=== PATIENT | female | born 1965 | race Caucasian/White ===

== ENCOUNTER 2018-04-09 12:28 | Emergency (ER) | payer MEDICAID ==
[~2018-04-09] VITALS: Ht 165.1 cm; Wt 75.0 kg
[~2018-04-09 12:28] MED LIST: DULO30CA2 PO; GABA-531 PO; HYDR-519 PO; INSU3INS6 SUBCUT; LOSA25TA12 PO; METF-415 PO; MIRT-91 PO; PREG50CA PO
[2018-04-09] MEDS ORDERED: METHYLPREDNISOLONE SOD SUCC 125 MG/2 ML VIAL ONE (12:52)
[2018-04-09] MEDS ORDERED: SODIUM CHLORIDE 0.9% 1,000 ML IV ONE (12:55)
[2018-04-09] MEDS ORDERED: METHYLPREDNISOLONE SOD SUCC 125 MG/2 ML VIAL IV ONE (13:00)
[2018-04-09] MEDS ORDERED: DIPHENHYDRAMINE 50MG/ML VIAL IV ONE (13:00)
[2018-04-09] MEDS ORDERED: EPINEPHRINE 1:1000 1 MG/ML AMP IM ONE (13:00)
[2018-04-09] MEDS ORDERED: FAMOTIDINE 20MG/2ML VIAL IV ONE (13:00)
[2018-04-09 15:19] VITALS: BP 120/62
== END 2018-04-09 15:20 | disposition home or self-care (01) ==
LOC: ER 12:28
DX: T63.441A Toxic effect of venom of bees, accidental (unintentional), initial encounter (principal); T78.2XXA Anaphylactic shock, unspecified, initial encounter; Y92.89 Other specified places as the place of occurrence of the external cause
CPT/HCPCS: 96361; 96372; 96374; 96375; 99283; J1200; J2930; J3490; J7030

== ENCOUNTER 2019-12-03 08:48 | Emergency (ER) | payer MEDICAID ==
[~2019-12-03] VITALS: Ht 152.4 cm; Wt 72.0 kg
[~2019-12-03 08:48] MED LIST changes: -LOSA25TA12 PO; +LOSA25TA26 PO
[2019-12-03] MEDS ORDERED: ACETAMINOPHEN WITH CODEINE 300/30MG TABLET PO ONE (09:45)
[2019-12-03] MEDS ORDERED: DEXAMETHASONE 4MG TABLET PO ONE (09:45)
[2019-12-03] MEDS ORDERED: DIPHENHYDRAMINE 25MG CAPSULE PO ONE (11:15)
[2019-12-03 11:46] VITALS: BP 148/81
== END 2019-12-03 11:47 | disposition home or self-care (01) ==
LOC: ER 08:48
DX: M72.2 Plantar fascial fibromatosis (principal); Z98.890 Other specified postprocedural states; Z90.710 Acquired absence of both cervix and uterus
CPT/HCPCS: 73630; 99284; J8540; Q0163

== ENCOUNTER 2020-08-19 15:55 | Emergency (ER) | payer MEDICAID, OTHER ==
[~2020-08-19] VITALS: Ht 165.1 cm; Wt 85.0 kg
[~2020-08-19 15:55] MED LIST changes: -GABA-531 PO; +GABA-532 PO
[2020-08-19 15:56] VITALS: BP 143/67
[2020-08-19] MEDS ORDERED: ACETAMINOPHEN 325MG TABLET PO ONE (18:15)
== END 2020-08-19 19:17 | disposition home or self-care (01) ==
LOC: ER 15:55
DX: S93.402A Sprain of unspecified ligament of left ankle, initial encounter (principal); I10 Essential (primary) hypertension; E11.9 Type 2 diabetes mellitus without complications; J45.909 Unspecified asthma, uncomplicated; M79.7 Fibromyalgia; Z87.81 Personal history of (healed) traumatic fracture; Z98.890 Other specified postprocedural states; Z88.0 Allergy status to penicillin; W01.0XXA Fall on same level from slipping, tripping and stumbling without subsequent striking against object, initial encounter; Y93.89 Activity, other specified; Y92.89 Other specified places as the place of occurrence of the external cause; Y99.8 Other external cause status
CPT/HCPCS: 73610; 99283

== ENCOUNTER 2020-11-25 15:20 | Emergency (ER) | payer MEDICAID, OTHER ==
[~2020-11-25] VITALS: Ht 152.4 cm; Wt 75.0 kg
[2020-11-25] MEDS ORDERED: ONDANSETRON HCL 4MG/2ML INJ IV STA (16:27)
[2020-11-25] MEDS ORDERED: KETOROLAC 30MG/ML VIAL IV STA (16:27)
[2020-11-25] MEDS ORDERED: SODIUM CHLORIDE 0.9% 1,000 ML IV ONE (16:30)
[2020-11-25 16:42] LABS: BASOPHILS % 0.4 % (0.0-2.0); EOSINOPHILS % 0.6 % (0.0-5.0); HEMATOCRIT. 43.4 % (36.0-48.0); HEMOGLOBIN. 14.7 g/dL (12.0-16.0); LYMPHOCYTES % 26.7 % (20.0-50.0); MEAN CORPUSCULAR HEMOGLOBIN 28.5 pg (28.0-32.0); MEAN PLATELET VOLUME 9.3 fl (7.4-10.4); MONOCYTES % 5.9 % (2.0-8.0); NEUTROPHILS % 66.4 % (40.0-76.0); PLATELET 299 x1000/uL (130-400); RED BLOOD CELL COUNT 5.17 mill/uL (4.2-5.4); RED CELL DISTRIBUTION WIDTH 14.5 % (11.6-14.6)
[2020-11-25 16:44] LABS: CHLORIDE 104 mEq/L (98-107)
[2020-11-25 16:48] LABS: PROTHROMBIN TIME 10.8 sec (9.6-11.0)
[2020-11-25 17:11] LABS: CLARITY URINE CLEAR (CLEAR); COLOR URINE YELLOW (YELLOW); KETONES URINE NEGATIVE (NEGATIVE); LEUKOCYTE ESTERASE URINE NEGATIVE (NEGATIVE); NITRITE URINE NEGATIVE (NEGATIVE); OCCULT BLOOD URINE NEGATIVE (NEGATIVE); PROTEIN URINE NEGATIVE (NEGATIVE); SPECIFIC GRAVITY URINE 1.008 (1.005-1.030); UROBILINOGEN URINE 0.2 E.U./dL (0.2-1.0)
[2020-11-25] MEDS ORDERED: OMEP40CA12 MT (18:06)
[2020-11-25 18:19] VITALS: BP 144/90
== END 2020-11-25 18:34 | disposition home or self-care (01) ==
LOC: ER 15:20
DX: R10.33 Periumbilical pain (principal); E11.9 Type 2 diabetes mellitus without complications; J45.909 Unspecified asthma, uncomplicated; I10 Essential (primary) hypertension; M79.7 Fibromyalgia; Z90.710 Acquired absence of both cervix and uterus; Z88.0 Allergy status to penicillin
CPT/HCPCS: 36415; 74176; 80053; 81003; 83690; 85025; 85610; 96361; 96374; 96375; 99284; J1885; J2405; J7030

== ENCOUNTER 2024-01-11 14:30 | Emergency (ER) | payer MEDICAID, OTHER ==
[~2024-01-11] VITALS: Ht 154.9 cm; Wt 73.0 kg
[~2024-01-11 14:30] MED LIST changes: +MIRT-90 PO; -MIRT-91 PO; +OMEP40CA20 MT
[2024-01-11 14:40] VITALS: BP 138/87; RESP 16; TEMP 98.4; O2SAT 97
[2024-01-11 14:45] VITALS: PULSE 112; O2SAT 98
[2024-01-11 16:07] LABS: BASOPHILS % 0.5 % (0.0-2.0); EOSINOPHILS % 0.8 % (0.0-5.0); HEMATOCRIT. 45.2 % (36.0-48.0); HEMOGLOBIN. 14.9 g/dL (12.0-16.0); MEAN CORPUSCULAR HEMOGLOBIN 28.6 pg (28.0-32.0); MEAN CORPUSCULAR VOLUME 86.6 fL (81.0-99.0); MEAN PLATELET VOLUME 9.2 fl (7.4-10.4); MONOCYTES % 4.8 % (2.0-8.0); NEUTROPHILS % 57.9 % (40.0-76.0); PLATELET 292 x1000/uL (130-400); RED BLOOD CELL COUNT 5.21 mill/uL (4.2-5.4); WHITE BLOOD COUNT 11.9 x1000/uL (4.5-11.0)
[2024-01-11 16:10] LABS: CHLORIDE 104 mEq/L (98-107); POTASSIUM 4.1 mEq/L (3.5-5.1); SODIUM 136 mEq/L (136-145)
[2024-01-11 16:12] LABS: CALCIUM 9.5 mg/dL (8.7-10.4); CARBON DIOXIDE 30 mEq/L (21-32)
[2024-01-11 16:17] LABS: CREATININE 0.7 mg/dL (0.6-1.0); GLUCOSE 222 mg/dL (70-105); UREA NITROGEN BLOOD 9 mg/dL (9-23)
== END 2024-01-11 22:00 | disposition left against medical advice (07) ==
LOC: ER 14:30
DX: M79.672 Pain in left foot (principal); Z53.21 Procedure and treatment not carried out due to patient leaving prior to being seen by health care provider
CPT/HCPCS: 36415; 80048; 85025; 86850; 86900